=== PATIENT | female | born 1975 | race Two or more races ===

== ENCOUNTER 2017-03-22 20:43 | Emergency (ER) | payer OTHER ==
[~2017-03-22] VITALS: Ht 157.5 cm; Wt 105.5 kg
[2017-03-22 20:48] VITALS: Ht 157.5 cm; Wt 105.5 kg
[2017-03-22] MEDS ORDERED: morphine 4 MG/ML VIAL IV STA (21:46)
[2017-03-22] MEDS ORDERED: ONDANSETRON 4 MG INJ IV STA (21:46)
--- NOTE | 2017-03-22 21:56 | ERD ---
ER Documentation Chief Complaint Date/Time DATE: 03/22/17 TIME: 21:52 Chief Complaint "heavy" vag bleed x 1 today - 6 pads today; abd pain; feeling weak HPI 41-year-old female presents to the emergency department complaining of heavy vaginal bleeding since today. Patient states she has experienced heavy bleeding with clots which has required the use of over 6 pads since today. Patient notes midline lower pelvic pain and bilateral flank pain. She states that she experienced these symptoms multiple times in the past during her monthly. And reports lengthy periods up to 3 weeks. She denies fever, chills, nausea, vomiting, diarrhea or recent illness. She denies vaginal discharge, swelling or rash. She states she does not have a primary care provider and has not followed up with an PRODUCTION STAGE MANAGER regarding this condition. ROS All systems reviewed and are negative except as per history of present illness. Allergies Allergies: Coded Allergies: Penicillins (Verified Allergy, Unknown, 03/22/17) PMhx/Soc Medical and Surgical Hx: pt denies Medical Hx, pt denies Surgical Hx Hx Alcohol Use: No Hx Substance Use: No Hx Tobacco Use: No Smoking Status: Never smoker Physical Exam Vitals Vital Signs Date Time Temp Pulse Resp B/P Pulse Ox O2 Delivery O2 Flow Rate FiO2 03/22/17 20:48 98.5 18 82 136/81 98 Physical Exam Const: Well-developed, well-nourished, no acute distress Head: Atraumatic Eyes: Normal Conjunctiva ENT: Normal External Ears, Nose and Mouth. Neck: Full range of motion..~ No meningismus. Resp: Clear to auscultation bilaterally Cardio: Regular rate and rhythm, no murmurs Abd: Soft, tenderness to palpation near midline lower pelvic region, otherwise non tender, non distended. Normal bowel sounds Skin: No petechiae or rashes Back: No midline or flank tenderness Ext: No cyanosis, or edema Neur: Awake and alert Psych: Normal Mood and Affect Result Diagram: 03/22/175 03/22/17 221 Results 24 hrs Laboratory Tests Test 03/22/17 22:15 White Blood Count 11.210^3/ul Red Blood Count 4.6010^6/ul Hemoglobin 11.1g/dl Hematocrit 35.3% Mean Corpuscular Volume 76.7fl Mean Corpuscular Hemoglobin 24.1pg Mean Corpuscular Hemoglobin Concent 31.4g/dl Red Cell Distribution Width 20.5% Platelet Count 01126^3/UL Mean Platelet Volume 10.6fl Neutrophils % 63.2% Lymphocytes % 28.8% Monocytes % 5.8% Eosinophils % 1.3% Basophils % 0.4% Nucleated Red Blood Cells % 0.0/100WBC Neutrophils # 7.110^3/ul Lymphocytes # 3.210^3/ul Monocytes # 0.710^3/ul Eosinophils # 0.210^3/ul Basophils # 0.110^3/ul Nucleated Red Blood Cells # 0.010^3/ul Urine Color LUKAS Urine Clarity CLOUDY Urine pH 6.0 Urine Specific [place] 1.028 Urine Ketones NEGATIVEmg/dL Urine Nitrite NEGATIVEmg/dL Urine Bilirubin NEGATIVEmg/dL Urine Urobilinogen NEGATIVEmg/dL Urine Leukocyte Esterase NEGATIVELeu/ul Urine Microscopic RBC > 182/HPF Urine Microscopic WBC 0/HPF Urine Bacteria FEW/HPF Urine Mucus FEW/HPF Urine Hemoglobin 3+mg/dL Urine Glucose 1+mg/dL Urine Total Protein 2+mg/dl Sodium Level 142mmol/L Potassium Level 4.1mmol/L Chloride Level 103mmol/L Carbon Dioxide Level 27mmol/L Anion Gap 16 Blood Urea Nitrogen 8mg/dl Creatinine 0.62mg/dl Glucose Level 114mg/dl Calcium Level 9.2mg/dl Total Bilirubin 0.5mg/dl Direct Bilirubin 0.00mg/dl Indirect Bilirubin 0.5mg/dl Aspartate Amino Transf (AST/SGOT) 59IU/L Alanine Aminotransferase (ALT/SGPT) 72IU/L Alkaline Phosphatase 75IU/L Total Protein 7.3g/dl Albumin 4.4g/dl Globulin 2.90g/dl Albumin/Globulin Ratio 1.51 Lipase 45U/L Current Medications Medications (Trade) Dose Ordered Sig/Mary Route PRN Reason Start Time Stop Time Status Last Admin Dose Admin Sodium Chloride (NS) 1,000 ml @ 1,000 mls/hr Q1H ONCE IV 03/22/17 22:00 03/22/17 22:59 DC 03/22/17 23:19 Morphine Sulfate (morphine) 4 mg ONCE STAT IV 03/22/17 21:46 03/22/17 21:52 DC 03/22/17 23:20 Ondansetron HCl (Zofran Inj) 4 mg ONCE STAT IV 03/22/17 21:46 03/22/17 21:52 DC 03/22/17 23:19 Procedures/MDM PROCEDURE: US Non-OB Pelvis. CLINICAL INDICATION: Heavy vaginal bleeding. TECHNIQUE: Multiple sonographic images of the pelvis were obtained utilizing a transabdominal technique. The images were reviewed on a PACS workstation. COMPARISON: None. FINDINGS: The uterus is visualized and measures 16.2 x 7.4 x 7.7 cm. The endometrial and endocervical canals are thickened, measuring up to 2.3 cm. The right ovary measures 5.1 x 4.3 x 4.7 cm. There is a 4.1 cm simple right ovarian cyst. The left ovary measures 2.6 x 2.8 x 3.4 cm. Blood flow is demonstrated to both ovaries. No adnexal masses are noted. There is no evidence of free fluid. IMPRESSION: 1. Thickened endometrial and endocervical canals (2.3 cm), nonspecific. This could be further evaluated with a sonohysterogram if clinically warranted. 2. 4.1 cm simple right ovarian cyst. 3. Unremarkable appearance of the left ovary. RPTAT: HTAR .Elias Singleton MD, MD Date Time Electronically viewed and signed by .Elias Singleton MD, MD on 03/22/2017 23:19 .R/ CC: LENY CALZADA PA-C This is an otherwise healthy 41-year-old female who presents the emergency department for complaints of heavy vaginal bleeding times today. She notes multiple prior episodes of similar symptoms but has not followed up with primary care or PRODUCTION STAGE MANAGER. Patient well-appearing, nontoxic upon arrival. Vital signs reviewed. Patient afebrile, normotensive, not tachycardic upon arrival. Abdominal exam without distention or significant tenderness. CBC showed no evidence of systemic infection or severe anemia. CMP showed no evidence of electrolyte abnormalities, severe acidosis, alkalosis , renal failure, or liver disease. Lipase showed no evidence of acute pancreatitis. UA showed no evidence of hematuria likely the result of the vaginal bleeding, no evidence of acute infection Urine test was negative. Ultrasound of evidence of a 4.1 cm ovarian cyst. Otherwise unremarkable Patient received a bolus of fluids as well as pain medication in the emergency department and reports improvement of symptoms. Patient's symptoms are likely the result of ovarian cyst and hormone related menorrhagia. At this time low suspicion for ovarian torsion, urine fibroid, tubo-ovarian abscess, ectopic , appendicitis, diverticulitis, or bowel obstruction. Advised patient to follow-up with an PRODUCTION STAGE MANAGER specialist in the next 2 weeks for proper management of her ongoing heavy periods and pelvic pain. Resources provided. Based on patient's history of present illness and physical examination the decision was made to discharge. The patient was re-evaluated after ED treatment and stabilizing measures, and symptoms have improved. There is no evidence of life threatening injuries or illnesses at this time. On re-examination, patient resting in no distress, stable vital signs, reports feeling better and safe for discharge with outpatient follow up with PMD in 1-2 days. Patient given return precautions. Departure Diagnosis: Primary Impression: Vaginal bleeding Additional Impression: Excessive vaginal bleeding LENY CALZADA PA-C Mar 22, 2017 21:56
[2017-03-22] MEDS ORDERED: SOD CHLORIDE 0.9% 1,000 ML IV ONE (22:00)
[2017-03-22 22:31] LABS: ADD SCAN DIFF NO
[2017-03-22 22:32] LABS: BASOPHIL # 0.1 10^3/ul (0.0-0.1); BASOPHILS % 0.4 % (0.0-2.0); EOSINOPHILS # 0.2 10^3/ul (0.0-0.5); EOSINOPHILS % 1.3 % (0.0-7.0); HEMATOCRIT 35.3 % (37.0-47.0); HEMOGLOBIN 11.1 g/dl (12.0-16.0); LYMPHOCYTES # 3.2 10^3/ul (0.8-2.9); LYMPHOCYTES % 28.8 % (15.0-51.0); MEAN CORPUSCULAR HEMOGLOBIN 24.1 pg (29.0-33.0); MEAN CORPUSCULAR HGB CONC 31.4 g/dl (32.0-37.0); MEAN CORPUSCULAR VOLUME 76.7 fl (82.0-101.0); MEAN PLATELET VOLUME 10.6 fl (7.4-10.4); MONOCYTE # 0.7 10^3/ul (0.3-0.9); MONOCYTES % 5.8 % (0.0-11.0); NEUTROPHIL # 7.1 10^3/ul (1.6-7.5); NEUTROPHILS % 63.2 % (39.0-77.0); PLATELET COUNT 304 10^3/UL (140-415); RED CELL DISTRIBUTION WIDTH 20.5 % (11.5-14.5); WHITE BLOOD COUNT 11.2 10^3/ul (4.8-10.8)
[2017-03-22 22:50] LABS: ADD UMIC YES; UR ASCORBIC ACID 20 mg/dL (NEGATIVE); UR BACTERIA FEW /HPF (NONE SEEN); UR BILIRUBIN (Dip) NEGATIVE (NEGATIVE); UR BLOOD (Dip) 3+ mg/dL (NEGATIVE); UR CLARITY CLOUDY (CLEAR); UR COLOR AMBER (YELLOW); UR GLUCOSE (Dip) 1+ mg/dL (NEGATIVE); UR KETONES (Dip) NEGATIVE (NEGATIVE); UR LEUKOCYTE ESTERASE (Dip) NEGATIVE Leu/ul (NEGATIVE); UR MUCUS FEW /HPF (NONE SEEN); UR NITRITE (Dip) NEGATIVE (NEGATIVE); UR RBC > 182 /HPF (0-5); UR SPECIFIC GRAVITY (Dip) 1.028 (1.003-1.030); UR TOTAL PROTEIN (Dip) 2+ mg/dl (NEGATIVE); UR UROBILINOGEN (Dip) NEGATIVE (NEGATIVE)
[2017-03-22 22:55] LABS: ALBUMIN 4.4 g/dl (3.3-4.9); ALBUMIN/GLOBULIN RATIO 1.51; BILIRUBIN,INDIRECT 0.5 mg/dl (0-1.1); BILIRUBIN,TOTAL 0.5 mg/dl (0.2-1.3); CALCIUM 9.2 mg/dl (8.4-10.2); CREATININE 0.62 mg/dl (0.44-1.00); POTASSIUM 4.1 mmol/L (3.5-5.1); TOTAL PROTEIN 7.3 g/dl (6.1-8.1)
--- NOTE | 2017-03-22 23:20 | RADRPT ---
PROCEDURE: US Non-OB Pelvis. CLINICAL INDICATION: Heavy vaginal bleeding. TECHNIQUE: Multiple sonographic images of the pelvis were obtained utilizing a transabdominal tech nique. The images were reviewed on a PACS workstation. COMPARISON: None. FINDINGS: The uterus is visualized and measures 16.2 x 7.4 x 7.7 cm. The endometrial and endocervical canals a re thickened, measuring up to 2.3 cm. The right ovary measures 5.1 x 4.3 x 4.7 cm. There is a 4.1 cm simple right ovarian cyst. The left ovary measures 2.6 x 2.8 x 3.4 cm. Blood flow is demonstrated to both ovaries. No adnexal masses are noted. There is no evidence of free fluid. IMPRESSION: 1. Thickened endometrial and endocervical canals (2.3 cm), nonspecific. This could be further evalu ated with a sonohysterogram if clinically warranted. 2. 4.1 cm simple right ovarian cyst. 3. Unremarkable appearance of the left ovary. RPTAT: HTAR .Elias Singleton MD, Date Time Electronically viewed and signed by .Elias Singleton MD, on 03/22/2017 23:19 .R/
[2017-03-22] MEDS ORDERED: HYDR-906 PO (23:36)
[2017-03-22] MEDS ORDERED: NAPR-260 PO (23:36)
[2017-03-22] MEDS ORDERED: FER325 PO (23:36)
[2017-03-23 00:35] VITALS: BP 118/57; PULSE 89; RESP 82
== END 2017-03-23 01:00 | disposition home or self-care (01) ==
LOC: FTE 20:43
DX: N93.8 Other specified abnormal uterine and vaginal bleeding (principal); R10.2 Pelvic and perineal pain
CPT/HCPCS: 76856; 80053; 81001; 83690; 85025; 96374; 96375; J2270; J2405; J7030; Z7502

== ENCOUNTER 2019-03-09 10:29 | Emergency (ER) | payer OTHER ==
[~2019-03-09] VITALS: Ht 162.6 cm; Wt 112.0 kg
[~2019-03-09 10:29] MED LIST: FER325 PO; HYDR-4011 PO; NAPR-985 PO
[2019-03-09 10:40] VITALS: BP 119/64; PULSE 61; RESP 16; Ht 162.6 cm; Wt 112.0 kg
[2019-03-09] MEDS ORDERED: OFLO5DRO7 RIGHT EAR (10:59)
[2019-03-09] MEDS ORDERED: CIPR500T4 PO (10:59)
[2019-03-09] MEDS ORDERED: IBUP-1542 PO (10:59)
--- NOTE | 2019-03-09 11:08 | ERD ---
ER Documentation Chief Complaint Chief Complaint rt ear pain since monday HPI 43-year-old female presents with original complaint of right ear pain for last 3 days. She feels like she may have discharge but none that is obvious. She denies cough or congestion. Patient later states that she was prescribed unspe cified eardrops by her primary doctor 2 weeks ago for similar complaints without relief. She has history of diabetes. ROS All systems reviewed and are negative except as per history of present illness. Medications Home Meds Active Scripts Ibuprofen* (Motrin*) 600 Mg Tab, 600 MG PO Q6, #15 TAB Prov:CHASITY LAINEZ MD 03/09/19 Ciprofloxacin Hcl* (Ciprofloxacin Hcl*) 500 Mg Tablet, 500 MG PO BID for 7 Days, TAB Prov:CHASITY LAINEZ MD 03/09/19 Ofloxacin Otic (Ofloxacin Otic) 5 Ml Drops, 5 DROP RIGHT EAR BID for 7 Days, #1 BOTTLE Eyedrops okay of otic drops unavailable. Prov:CHASITY LAINEZ MD 03/09/19 Ferrous Sulfate* (Ferrous Sulfate*) 325 Mg Tabec, 325 MG PO DAILY for 30 Days, TAB Prov:LENY CALZADA PA-C 03/22/17 Hydrocodone/Acetaminophen ([place] 5-325 Tablet) 1 Each Tablet, 1 TAB PO Q6H PRN for PAIN, #7 TAB Prov:LENY CALZADA PA-C 03/22/17 Naproxen* (Naprosyn*) 500 Mg Tablet, 500 MG PO BID PRN for PAIN AND/OR INFLAMMATION, #30 TAB Prov:LENY CALZADA PA-C 03/22/17 Allergies Allergies: Coded Allergies: Penicillins (Verified Allergy, Unknown, 03/22/17) PMhx/Soc Hx Alcohol Use: No Hx Substance Use: No Hx Tobacco Use: No FmHx Family History: No diabetes, No coronary disease, No other Physical Exam Vitals Vital Signs Date Temp Pulse Resp B/P (MAP) Pulse Ox O2 O2 Flow FiO2 Time Delivery Rate 03/09/19 98.2 61 16 119/64 95 10:40 (82) Physical Exam Const: No acute distress Head: Atraumatic Eyes: Normal Conjunctiva ENT: Normal External Ears, Nose and Mouth. Right external auditory canal d ecreased diameter and irritation and moisture. TM grossly normal but barely visible through the swollen external auditory canal. No mastoid tenderness. No external erythema or induration. Pain with passive range of motion of the external ear on the right. Neck: Full range of motion. No meningismus. Resp: Clear to auscultation bilaterally Cardio: Regular rate and rhythm, no murmurs Abd: Soft, non tender, non distended. Normal bowel sounds Skin: No petechiae or rashes Back: No midline or flank tenderness Ext: No cyanosis, or edema Neur: Awake and alert Psych: Normal Mood and Affect Procedures/MDM Patient presents with signs and symptoms of right otitis externa without signs of cellulitis, malignant otitis externa, mastoiditis. She will be treated given unsuccessful previous treatment with ofloxacin otic drops, Cipro, ibuprofen, further observation at home and return precautions. The patient was stable with no new complaints during the ER course. Clinically, there is no current evidence to suggest meningitis, sepsis, acute abdomen, pneumonia, stroke, acute coronary syndrome, pulmonary embolism, aortic dissection or any other emergent condition appearing to require further evaluation or hospitalization. Patient counseled regarding my diagnostic impression and care plan. Prior to discharge all questions answered. Pt agrees with treatment plan and understands strict return precautions. Pt is instructed to follow up with primary care provider within 24- 48 hours. Precautionary instructions provided including instructions to return to the ER if not improving or for any worsening or changing symptoms or concerns. Disclaimer: Inadvertent spelling and grammatical errors are likely due to EHR/dictation software use and do not reflect on the overall quality of patient care. Also, please note that the electronic time recorded on this note does not necessarily reflect the actual time of the patient encounter. Departure Diagnosis: Primary Impression: Otitis externa Otitis externa type: unspecified type Chronicity: acute Laterality: right Qualified Codes: H60.501 - Unspecified acute noninfective otitis externa, right ear Condition: Stable Patient Instructions: External Ear Infection (Adult) Additional Instructions: Recheck for new or worsening symptoms with primary care doctor. CHASITY LAINEZ MD Mar 09, 2019 11:08
[2019-03-10] MEDS ORDERED: HYDR-3980 PO (05:08)
== END 2019-03-09 11:15 | disposition home or self-care (01) ==
LOC: FTE 10:29
DX: H60.501 Unspecified acute noninfective otitis externa, right ear (principal); E11.9 Type 2 diabetes mellitus without complications
CPT/HCPCS: 99283

== ENCOUNTER 2019-03-10 04:27 | Emergency (ER) | payer OTHER ==
[~2019-03-10] VITALS: Ht 160 cm; Wt 113.2 kg
[~2019-03-10 04:27] MED LIST changes: +CIPR500T4 PO; +IBUP-1542 PO; +OFLO5DRO7 RIGHT EAR
[2019-03-10 04:34] VITALS: BP 146/71; PULSE 69; RESP 18; Ht 160 cm; Wt 113.2 kg
--- NOTE | 2019-03-10 04:57 | ERD ---
ER Documentation Chief Complaint Chief Complaint C/O RT EAR ACHE X4 DAYS HPI This is a 43-year-old female presents to emerge department with complaints of right ear pain for about 4 days. Was seen here in emergency department for the same reason and was prescribed ciprofloxacin and ofloxacin. Patient stated that there was no relief. Patient stated that the pain got worse. LMP: Stated that she does not have any menstrual periods anymore. G4, . Denies headache, head injury, loss of consciousness, dizziness, neck pain, neck stiffness, throat pain, difficulty swallowing, difficulty breathing lying flat, shoulder pain, chest pain, back pain, abdominal pain, nausea, vomiting, constipation, diarrhea, urinary symptoms, or possibility being , loss of bowel and bladder control, trauma, injury, falls, difficulty walking due to pain, numbness or tingling sensation, calf pain, recent travel, recent major surgery in the last 3 weeks, calf pain, recent long travel, recent exposure to any illness, recent antibiotic use in the last 3 months, fever, chills, seizures. Past medical history: Surgical history: Social: Denies smoking, use of alcoholic beverages, use of illegal drugs. ROS All systems reviewed and are negative except as per history of present illness. Medications Home Meds Active Scripts Hydrocodone/Acetaminophen ([place] 10-325 Tablet) 1 Each Tablet, 1 TAB PO Q6H PRN for PAIN, #15 TAB Prov:RITA DELEON 03/10/19 Ibuprofen* (Motrin*) 600 Mg Tab, 600 MG PO Q6, #15 TAB Prov:CHASITY LAINEZ MD 03/09/19 Ciprofloxacin Hcl* (Ciprofloxacin Hcl*) 500 Mg Tablet, 500 MG PO BID for 7 Days, TAB Prov:CHASITY LAINEZ MD 03/09/19 Ofloxacin Otic (Ofloxacin Otic) 5 Ml Drops, 5 DROP RIGHT EAR BID for 7 Days, #1 BOTTLE Eyedrops okay of otic drops unavailable. Prov:CHASITY LAINEZ MD 03/09/19 Ferrous Sulfate* (Ferrous Sulfate*) 325 Mg Tabec, 325 MG PO DAILY for 30 Days, TAB Prov:LENY CALZADA PA-C 03/22/17 Hydrocodone/Acetaminophen ([place] 5-325 Tablet) 1 Each Tablet, 1 TAB PO Q6H PRN for PAIN, #7 TAB Prov:LENY CALZADA PA-C 03/22/17 Naproxen* (Naprosyn*) 500 Mg Tablet, 500 MG PO BID PRN for PAIN AND/OR INFLAMMATION, #30 TAB Prov:CALZADA,LENY Barnes PA-C 03/22/17 Allergies Allergies: Coded Allergies: Penicillins (Verified Allergy, Unknown, 03/09/19) PMhx/Soc History of Surgery: Yes (cholecystestectomy,hysterectomy, R oophorectomy) Hx Alcohol Use: No Hx Substance Use: No Hx Tobacco Use: No Physical Exam Vitals Vital Signs Date Temp Pulse Resp B/P (MAP) Pulse Ox O2 O2 Flow FiO2 Time Delivery Rate 03/10/19 97.6 69 18 146/71 95 04:34 (96) Physical Exam Const: No acute distress Head: Atraumatic Eyes: Normal Conjunctiva. ENT: Normal External Ears, Nose and Mouth. Right ear: Tenderness noted to external are. Swollen externally. Mild erythema. External canal is erythematous. Unable to visualized TM. No foreign body seen. No mastoid tenderness. No bleeding. No discharge. No hearing loss. No hearing loss. Left ear: No external canal erythema. TM is not erythematous. No bleeding. No discharge. No mastoid tenderness. No foreign bodies seen. No hearing loss. Nose: Midline. There is no frontal or maxillary sinus tenderness to palpation. Throat: Uvula is in midline and nondisplaced. Tonsils are +1 without redness and without exudates. Tolerating secretions with patent airway. Speaks full and clear sentences. Neck: Full range of motion. No meningismus. No nuchal rigidity. No signs of meningeal irritation. Resp: Clear to auscultation bilaterally Cardio: Regular rate and rhythm, no murmurs Abd: Soft, non tender, non distended. Normal bowel sounds Skin: No petechiae or rashes Back: No midline or flank tenderness Ext: No cyanosis, or edema Neur: Awake and alert. Romberg test is negative. No neurological deficits. Psych: Normal Mood and Affect Results 24 hrs Current Medications Medications Dose Sig/Mary Start Time Status Last (Trade) Ordered Route PRN Stop Time Admin Dose Reason Admin 1 tab ONCE ONCE 03/10/19 DC 03/10/19 Acetaminophen PO 05:30 05:16 / 6/16/19 05:31 Hydrocodone Bitart ([place] (10)) Ondansetron 4 mg ONCE STAT 03/10/19 DC 03/10/19 HCl (Zofran ODT 05:05 05:16 Odt) 03/10/19 05:06 Procedures/MDM Diagnostic tests: Clinical exam. This case was discussed with my supervising physician, Dr. Bonilla Samayoa who also examined the patient and agreed with my medical decision making. Treatment: [place]. Zofran. Re-evaluation: Denies pain. Stated that she feels much better at this time and that they are ready to go home. Differential diagnosis I have low suspicion for sepsis, mastoiditis, meningitis, malignant otitis externa, retained foreign body, deep space infection. Final diagnosis: Otitis externa. Prescription: [place] p.o. Continue to take your ciprofloxacin and ofloxacin. Follow-up with PCP in the next 24-48 hours. Follow-up with ENT in the next 24 to 48 hours. Come back here in the emergency department for any new symptoms or any worsening symptoms. All questions and concerns were answered. Patient and family members verbalized understanding and agreed with plan of care. Hemodynamically stable on discharge. Departure Diagnosis: Primary Impression: Otitis externa Additional Impression: Ear pain, right Condition: Stable Additional Instructions: Follow-up with PCP in the next 24-48 hours. Follow-up with ENT in the next 24 to 48 hours. Come back here in the emergency department for any new symptoms or any worsening symptoms. RITA DELEON Mar 10, 2019 04:57
[2019-03-10] MEDS ORDERED: ONDANSETRON (ODT) 4 MG TAB ODT STA (05:05)
[2019-03-10] MEDS ORDERED: HYDR-3980 PO (05:08)
[2019-03-10] MEDS ORDERED: HYDROCODONE/APAP (10/325) TAB PO ONE (05:30)
== END 2019-03-10 05:37 | disposition home or self-care (01) ==
LOC: FTE 04:27
DX: H60.91 Unspecified otitis externa, right ear (principal)
CPT/HCPCS: Z7502; Z7610; 99283